=== PATIENT | male | born 1945 | race Caucasian/White ===

== ENCOUNTER 2016-11-04 19:14 | Emergency (ER) | payer OTHER ==
[2016-11-04 19:21] VITALS: BP 134/81; PULSE 50; RESP 18; TEMP 98.2; O2SAT 97
--- NOTE | 2016-11-04 19:35 | EDPHY ---
H & P Stated Complaint: BILAT EYE DRAINAGE AND REDNESS TODAY Time Seen by Provider: 11/04/16 19:35 HPI/ROS: CHIEF COMPLAINT: Bilateral conjunctival injection and drainage HISTORY OF PRESENT ILLNESS: The patient presents to the ED with a 1 day history of bilateral conjunctival injection and drainage. The patient denies any use of contact lenses. The patient has had an upper respiratory tract infection over the past week. He has had nasal congestion and a slight cough. The patient denies fever. He denies significant past medical history or immunosuppressed state. The patient has no complaints of abdominal pain. He denies significant respiratory distress. He has no complaints of otalgia or sore throat. REVIEW OF SYSTEMS: A comprehensive 10 point review of systems is otherwise negative aside from elements mentioned in the history of present illness. Source: Patient Exam Limitations: No limitations - Personal History Current Tetanus/Diphtheria Vaccine: Yes Current Tetanus Diphtheria and Acellular Pertussis (TDAP): Yes Tetanus Vaccine Date: 2012 - Medical/Surgical History Hx Asthma: Yes Hx Chronic Respiratory Disease: No Hx Diabetes: No Hx Cardiac Disease: No Hx Renal Disease: No Hx Cirrhosis: No Hx Alcoholism: No Hx HIV/AIDS: No Hx Splenectomy or Spleen Trauma: No Other PMH: deviated septum repair - 2012, rt shoulder dislocations - Social History Smoking Status: Never smoked - Physical Exam Exam: General Appearance: Alert, no distress Eyes: Bilateral conjunctival injection with exudate, examination with fluorescein demonstrates no evidence of a corneal abrasion or ulcer. Slit-lamp examination demonstrates no evidence of an obvious foreign body. ENT, Mouth: Mucous membranes moist, no pharyngeal erythema or mass Respiratory: There are no retractions, lungs are clear to auscultation, specifically no evidence of pneumonia Neurological: A&O, normal motor function, normal sensory exam, normal cranial nerves Skin: Warm and dry, no rashes Musculoskeletal: Neck is supple nontender Extremities: symmetrical, full range of motion Constitutional: Initial Vital Signs Temperature (C) 36.8 C 11/04/16 19:17 Heart Rate 50 L 11/04/16 19:17 Respiratory Rate 18 11/04/16 19:17 Blood Pressure 134/81 H 11/04/16 19:17 O2 Sat (%) 97 11/04/16 19:17 O2 Delivery Mode Room Air Allergies/Adverse Reactions: No Known Allergies Allergy (Unverified 11/04/16 19:21) Home Medications: Medication Instructions Recorded Albuterol [Proventil Inhaler] 2 puffs IH DAILY PRN 05/24/13 Anastrozole [Arimidex 1 mg (RX)] 0.5 mg PO MOFR@05/24/13 Ascorbic Acid [Vitamin C 500 mg 2,000 mg PO DAILY@05/24/13 (OTC)] Ascorbic Acid [Vitamin C 500 mg 500 mg PO BID@,05/24/13 (OTC)] Hcg 700 Units 700 units SC MOWEFR@05/24/13 Herbals/Supplements -Info Only 1 each PO AD 05/24/13 Multivitamins [Tab-A-Sis] 2 each PO BIDMEAL 05/24/13 [place]-3 Fatty Acids [Fish Oil 1000 1,000 mg PO DAILY@05/24/13 mg (OTC)] Vitamin B Complex [Vitamin B 1 each PO BID@,05/24/13 Complex (OTC)] Vitamin E [Vitamin E 400 units 800 unit PO DAILY 05/24/13 (OTC)] Medical Decision Making ED Course/Re-evaluation: The patient presents the emergency department with bilateral conjunctival and discharge consistent with conjunctivitis. He has no evidence of a corneal ulcer or abrasion. He has no clinical evidence of a periorbital or orbital cellulitis. The patient does not wear contact lenses. The patient will be started on Ocuflox eyedrops. 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 He is discharged home with customary aftercare instructions and return precautions. Differential Diagnosis: Differential diagnosis considered includes conjunctivitis, corneal abrasion, corneal ulcer, orbital cellulitis, periorbital cellulitis - Data Points Medications Given: Discontinued Medications Fluorescein Sodium (Vtent-I-Phlqx) 2 mg OP EDNOW ONE Stop: 11/04/16 19:58 Last Admin: 11/04/16 20:03 Dose: 2 mg Ofloxacin (Ocuflox 0.3% Opht Drops Prepack) 1 btl TAKEHOME EDNOW ONE Stop: 11/04/16 19:59 Last Admin: 11/04/16 20:04 Dose: 1 btl Proparacaine HCl (Alcaine 0.5%) 1 drops EACHEYE ONCE ONE Stop: 11/04/16 19:59 Last Admin: 11/04/16 20:03 Dose: 1 drop Departure - Departure Disposition: Home, Routine, Self-Care Clinical Impression: Conjunctivitis Condition: Good Instructions: Conjunctivitis (ED) Additional Instructions: 1. Please use one eye drop to each eye 5 times a day for next week. 2. Please schedule a follow-up appointment with your regular solar design engineer Dr. Edgar for any symptoms which failed to improve past 2 days. 3. Please return to the ED for markedly worsening symptoms or other concerns. Referrals: Hebert Edgar MD [Medical Doctor] - As per Instructions Doug Bhagat [Primary Care Provider] - As per Instructions
[2016-11-04] MEDS ORDERED: FLUORESCEIN SODIUM 1 MG STRIP OP ONE (19:57)
[2016-11-04] MEDS ORDERED: OFLOXACIN 0.3% SOLN PREPACK OPHT.BTL TAKEHOME ONE (19:58)
[2016-11-04] MEDS ORDERED: PROPARACAINE 0.5% 15 ML OPHT DROP EACHEYE ONE (19:58)
== END 2016-11-04 20:24 | disposition home or self-care (01) ==
DX: H10.9 Unspecified conjunctivitis (principal); J45.909 Unspecified asthma, uncomplicated